=== PATIENT | male | born 1955 | race Caucasian/White ===

== ENCOUNTER 2019-09-21 20:05 | Emergency (ER) | payer OTHER, SELFPAY ==
[2019-09-21 20:18] VITALS: BP 165/95; PULSE 89; RESP 18; TEMP 36.8; O2SAT 99
--- NOTE | 2019-09-21 20:32 | ED.WOUNDLAC ---
HPI - Wound/Laceration General Chief Complaint: Wound/Laceration Stated Complaint: injury to finger Time Seen by Provider: 09/21/19 20:32 Source: patient Mode of arrival: ambulatory Limitations: no limitations History of Present Illness HPI narrative: 64-year-old man comes in today complaining of a laceration on the tip of his left index finger. Patient states that seat for his new lawn or came down and cut off the tip. He states he had a tetanus shot 2 years ago. Onset (ago): hour(s) (1) Extremity Location: Left: hand ( Index finger tip) Place: home Patient tetanus UTD: Yes Context: accidental Associated symptoms: pain Treatments prior to arrival: bandage Related Data Home Medications Medication Instructions Recorded Confirmed gabapentin 300 mg PO TID 09/21/19 09/21/19 meloxicam 15 mg PO DAILY 09/21/19 09/21/19 pantoprazole 40 mg PO QAM 09/21/19 09/21/19 Allergies Allergy/AdvReac Type Severity Reaction Status Date / Time No Known Allergies Allergy Verified 09/21/19 20:25 Review of Systems Constitutional: Constitutional: Denies chills, Denies fever(s) and Denies weakness Cardiovascular: Cardiovascular: Denies chest pain and Denies radiating jaw, neck or arm pain Respiratory: Respiratory: Denies cough and Denies dyspnea Musculoskeletal: Musculoskeletal: Reports back pain ( chronic), Denies arthralgias, Denies joint swelling and Denies muscle cramps Integumentary/Breasts: Skin/Breast: Reports as per HPI, Denies pruritus, Denies erythema and Denies rash Neurologic: Denies vertigo, Denies dizziness, Denies syncope, Denies focal weakness and Denies numbness Hematologic/Lymphatic: Hematologic/Lymphatic: Denies easy bleeding and Denies easy bruising Allergic/Immunologic: Allergic/Immunologic: Denies lip swelling, Denies throat swelling and Denies tongue swelling PMFSH Past Medical History Medical History Back pain GERD (gastroesophageal reflux disease) Surgical History Surgical History History of surgery on arm laceration of forearm and flexor tendon Social History Social History Smoking status: Current every day smoker Alcohol intake: never Substance use: never Living arrangements: with family Exam Const: General: healthy appearing and alert Orientation/consciousness: patient oriented x3 Other: mild acute distress. Resp: Effort & Inspection: normal respiratory effort, not labored and no retractions Auscultation: clear to auscultation bilaterally, no rales, no rhonchi and no wheezes Cardio: Rate: abnormal rate Rhythm: abnormal rhythm Heart sounds: no murmurs Skin: General skin exam: normal color, no jaundice and no pallor Rashes: no rashes Other: oval left index finger tip avulsion 1 cm in greatest dimension. Small amount of active bleeding. Nail and nail bed are uninvolved. Neuro: General: patient oriented x3, moves all extremities and no focal motor deficits Speech: normal speech Extrem: General: normal to inspection and no clubbing, cyanosis or edema Psych: Appearance: grossly normal and well kempt Mental Status: mental status grossly normal Affect: normal affect Attitude: cooperative Thought content: Yes Normal thought content present Course Vital Signs Vital signs: Vital Signs Temperature 36.8 C 09/21/19 20:18 Pulse Rate 89 09/21/19 20:18 Respiratory Rate 18 09/21/19 20:18 Blood Pressure 165/95 H 09/21/19 20:18 Pulse Oximetry 99 09/21/19 20:18 Temperature 36.8 C 09/21/19 20:18 Pulse Rate 89 09/21/19 20:18 Respiratory Rate 18 09/21/19 20:18 Blood Pressure 165/95 H 09/21/19 20:18 Pulse Oximetry 99 09/21/19 20:18 Procedures Laceration Laceration 1: Date: 09/21/19 Time: 20:50 Size (cm): 1 Description: irregular and contaminated
== END 2019-09-21 21:18 | disposition home or self-care (01) ==
PROVIDERS: Emergency Provider Emergency Medicine; PCP Internal Medicine
DX: S61.211A Laceration without foreign body of left index finger without damage to nail, initial encounter (principal); W45.8XXA Other foreign body or object entering through skin, initial encounter
CPT/HCPCS: 12001; 99283

== ENCOUNTER 2020-06-12 17:14 | Emergency (ER) | payer OTHER, SELFPAY ==
--- NOTE | ~2020-06-12 | CT_ITS ---
EXAMINATION: CT abdomen pelvis wo con DATE: 06/12/2020 18:07 INDICATION: Right flank pain TECHNIQUE: Computed tomography (CT) of the abdomen and pelvis was performed without intravenous contr ast. The dose-length product (DLP) was 266.26 mGy-cm. Automated exposure control and iterative recons truction technique were employed. COMPARISON: None FINDINGS: The lung bases are clear. The heart size is normal. Hypoattenuating lesions of the liver me asuring up to 2.4 cm in the left hepatic lobe likely represent cysts. The spleen, pancreas, gallbladd er, and adrenal glands are normal. There is a 3 mm stone of the right distal ureter which causes mild right hydroureteronephrosis. Cysts of the right kidney measure up to 2.5 cm. There is a 2 mm nonobst ructing stone of the left kidney lower pole. There is calcified atherosclerosis of the aorta and many of the other arteries. No pathologically enlarged abdominal or pelvic lymph nodes are identified. Th ere is no free intraperitoneal gas or evidence of bowel obstruction. There are fat-containing inguina l hernias. There are bilateral L5 pars defects with grade 1 anterolisthesis of L5 on S1. IMPRESSION: 1. 3 mm stone of the right distal ureter causing mild right hydroureteronephrosis. Consider KUB for t reatment planning purposes. Reviewed, dictated and finalized at location A. TECH IMPRESSION: 1. 3 mm stone of the right distal ureter causing mild right hydroureteronephros is. Consider KUB for treatment planning purposes.
--- NOTE | 2020-06-12 17:39 | ECG_ITS ---
Measurements Intervals [place] Rate: 88 P: 46 ID: 151 QRS: -36 QRSD: 145 T: 29 QT: 388 QTc: 470 Interpretive Statements SINUS RHYTHM LEFT AXIS DEVIATION RIGHT BUNDLE BRANCH BLOCK BASELINE ARTIFACT- I, II, III, V3 ABNORMAL ECG Electronically Signed On 06-12-2020 19:15:47 [employer] by David Alfaro D.O.
[2020-06-12] MEDS: KETOROLAC 30 MG/ML VIAL (*BKC) IV PUSH (17:45)
[2020-06-12] MEDS: SODIUM CHLORIDE 0.9% IV 1,000 ML 999 ML IV CONT (17:45)
[2020-06-12 17:58] LABS: Add Urine Microscopic? YES; Appearance Urine Clear (Clear); Basophils Absolute Auto 0.07 K/mm3 (0.00-0.10); Bilirubin Urine Negative (Negative); Blood Urine 3+ (Negative); Color Urine Yellow (Yellow); Eosinophils Absolute Auto 0.32 K/mm3 (0.02-0.50); Eosinophils Percent Auto 4.5 % (1.0-6.0); Glucose Urine UA Negative (Negative); Hematocrit 39.8 % (40.0-54.0); Hemoglobin 13.2 g/dL (14.0-18.0); Immature Granulocyte Absolute 0.03 K/mm3 (0.00-0.00); Immature Granulocyte Percent A 0.4 % (0.0-0.0); Ketones Urine Negative (Negative); Leukocyte Esterase Ur Negative LEU/UL (Negative); Lymphocytes Absolute Auto 2.11 K/mm3 (1.10-4.50); Lymphocytes Percent Auto 29.9 % (18.0-42.0); Mean Corpuscular HGB Conc 33.2 g/dL (32.0-36.0); Mean Corpuscular Hemoglobin 30.2 pg (27.0-31.0); Mean Corpuscular Volume 91.1 fL (78.0-102.0); Mean Platelet Volume 9.5 fl (8.7-11.0); Monocytes Absolute Auto 0.71 K/mm3 (0.10-0.90); Monocytes Percent Auto 10.1 % (2.0-11.0); Neutrophils Absolute Auto 3.8 K/mm3 (1.7-7.2); Neutrophils Percent Auto 54.1 % (50.0-70.0); Nitrate Urine Negative (Negative); Platelet Count Result 222 K/mm3 (150-420); Protein Urine Negative (Negative); Red Blood Count 4.37 M/mm3 (4.70-6.10); Red Cell Distribution Width 12.6 % (11.6-14.4); Specific Grav Ur >= 1.030 (1.010-1.020); Urobilinogen Urine 0.2 mg/dL (0.2-1.0); White Blood Count 7.1 K/mm3 (4.8-10.8); pH Urine 5.5 (5.0-8.0)
[2020-06-12 18:03] VITALS: BP 156/105; PULSE 75; RESP 20; TEMP 36.8; O2SAT 99
[2020-06-12 18:04] LABS: RBC Urine 21-50 /hpf (0-2); Squamous Epithelial Cell Urine Rare /hpf (Few); WBC Urine 0-3 /hpf (0-3)
[2020-06-12 18:05] LABS: Bacteria Urine Trace /hpf
[2020-06-12 18:14] LABS: Alanine Aminotransferase 38 U/L (16-63); Alkaline Phosphatase 64 U/L (46-116); Anion Gap 7 mmol/L (8-16); Aspartate Amino Transferase 34 U/L (15-37); Bilirubin,Total 0.4 mg/dL (0.00-1.00); Blood Urea Nitrogen 27 mg/dL (7-18); Calcium 8.9 mg/dL (8.5-10.1); Carbon Dioxide 26 mmol/L (21-32); Chloride 105 mmol/L (98-108); Estimated CRCL calculation 39 ml/min; Estimated Glomerular Filt Rate 39; Glucose 99 mg/dL (70-99); Lipase 136 U/L (73-393); Osmolality Calculated 291 mOsm/kg (285-295); Potassium 4.1 mmol/L (3.5-5.1); Sodium 138 mmol/L (136-145); Troponin I 4.6 ng/L (0.00-60.4)
[2020-06-12 18:17] LABS: Lactic Acid Reflex 1.3 mmol/L (0.4-2.0)
--- NOTE | 2020-06-12 18:38 | ED.MALEGU ---
HPI - Male Genitourinary General Chief complaint: Urogenital-Male Stated complaint: side pain Source: patient and family Mode of arrival: ambulatory Limitations: no limitations History of Present Illness HPI Narrative: this is a 65-year-old gentleman that presents with right flank pain that radiates into his right groin started earlier today rates his pain about 8/10 is intermittent with some no dysuria no hematuria no nausea vomiting no chest pain no shortness of breath. Patient states that he does have a remote history of kidney stones in the past, currently no fever chills. Onset (ago): hour(s) Duration: intermittent Location: right flank Severity: moderate Severity scale (1-10): 8 Quality: aching and dull Relieving factors: none Exacerbating factors: none Related Data Home Medications Medication Instructions Recorded Confirmed meloxicam [Mobic] 15 mg PO DAILY 09/21/19 06/12/20 pantoprazole [Protonix] 40 mg PO QAM 09/21/19 06/12/20 Allergies Allergy/AdvReac Type Severity Reaction Status Date / Time No Known Allergies Allergy Verified 06/12/20 18:08 Review of Systems Review of Systems: All systems reviewed & are unremarkable except as noted in HPI and below PMFSH Past Medical History Medical History Back pain GERD (gastroesophageal reflux disease) Surgical History Surgical History History of surgery on arm laceration of forearm and flexor tendon Social History Social History Smoking status: Current every day smoker Alcohol intake: never Substance use: never Gender identity (if verbalized by the patient): Male Exam Const: General: cooperative, healthy appearing and no acute distress HENMT: Head: normal to inspection General nose exam: Normal external nose present Face and sinus: normal facial exam Mouth: Yes Normal oral and palatal mucosa present Eyes: General: appearance normal, both eyes and all related structures Sclera: sclerae normal Cornea: corneas normal Chest: Chest palpation & inspection: normal inspection of the chest and normal palpation of entire chest wall Resp: Effort & Inspection: normal respiratory effort and able to speak in complete sentences Auscultation: clear to auscultation bilaterally Cardio: Jugular venous distension: no JVD Palpation: normal PMI Rate: regular rate Rhythm: regular rhythm Heart sounds: S1 normal heart sound present Bruits: Abdominal aortic bruit present Peripheral pulses: Peripheral pulses 2+ throughout GI: Inspection: normal to inspection : General: Yes CVA tenderness ( Right flank tenderness radiating into his right groin) Back/Spine/Pelvis: Back: CVA tenderness Skin: General skin exam: normal color Extrem: General: normal to inspection, full ROM and capillary refill normal Psych: Appearance: grossly normal and well kempt Mental Status: mental status grossly normal Course Course Emergency Course: patient receive Toradol IV and pain is some marginally reduced, received IV fluids and reviewed the CT scan and blood work with patient and advise that he has a small urinary stone in the distal ureter approximately 3mm. Vital Signs Vital signs: Vital Signs Temperature 36.8 C 06/12/20 18:03 Pulse Rate 75 06/12/20 18:03 Respiratory Rate 20 06/12/20 18:03 Blood Pressure 156/105 H 06/12/20 18:03 Pulse Oximetry 99 06/12/20 18:03 Temperature 36.8 C 06/12/20 18:03 Pulse Rate 75 06/12/20 18:03 Respiratory Rate 20 06/12/20 18:03 Blood Pressure 156/105 H 06/12/20 18:03 Pulse Oximetry 99 06/12/20 18:03 MDM - Male Genitourinary Lab Data Result diagrams: 06/12/20 17:50 06/12/20 17:50 Labs: Lab Results 06/12/20 06/12/20 06/12/20 Range/Units 17:50 17:50 17:50 WBC 7.1 (4.8-10.8) K/mm3 RBC 4.37
[2020-06-12] MEDS: TAMSULOSIN HCL 0.4 MG CAPSULE PO (18:45)
[2020-06-12] MEDS: amLODIPine BESYLATE 5 MG TABLET PO (18:45)
[2020-06-12 18:46] VITALS: BP 128/98; PULSE 81; RESP 20; O2SAT 99
== END 2020-06-12 18:51 | disposition home or self-care (01) ==
PROVIDERS: Emergency Provider Emergency Medicine; PCP Internal Medicine
DX: N20.1 Calculus of ureter (principal)
CPT/HCPCS: 36415; 74176; 80053; 81001; 83605; 83690; 84484; 85025; 93005; 96361; 96374; 99283; 99284; A9270; J1885; J7030

== ENCOUNTER 2020-09-30 06:53 | Outpatient (CLI) | payer OTHER, SELFPAY ==
[2020-09-30 07:07] LABS: Basophils Absolute Auto 0.06 K/mm3 (0.00-0.10); Basophils Percent Auto 1.1 % (0.0-1.0); Eosinophils Absolute Auto 0.32 K/mm3 (0.02-0.50); Eosinophils Percent Auto 5.9 % (1.0-6.0); Hemoglobin 14.1 g/dL (14.0-18.0); Immature Granulocyte Absolute 0.02 K/mm3 (0.00-0.00); Immature Granulocyte Percent A 0.4 % (0.0-0.0); Lymphocytes Absolute Auto 1.45 K/mm3 (1.10-4.50); Lymphocytes Percent Auto 26.7 % (18.0-42.0); Mean Corpuscular HGB Conc 33.6 g/dL (32.0-36.0); Mean Corpuscular Hemoglobin 30.9 pg (27.0-31.0); Mean Corpuscular Volume 92.1 fL (78.0-102.0); Mean Platelet Volume 9.1 fl (8.7-11.0); Monocytes Absolute Auto 0.55 K/mm3 (0.10-0.90); Monocytes Percent Auto 10.1 % (2.0-11.0); Neutrophils Percent Auto 55.8 % (50.0-70.0); Platelet Count Result 226 K/mm3 (150-420); Red Blood Count 4.56 M/mm3 (4.70-6.10); Red Cell Distribution Width 12.5 % (11.6-14.4); White Blood Count 5.4 K/mm3 (4.8-10.8)
[2020-09-30 07:08] LABS: Add Urine Microscopic? NO; Appearance Urine Clear (Clear); Bilirubin Urine Negative (Negative); Blood Urine Negative (Negative); Color Urine Yellow (Yellow); Glucose Urine UA Negative (Negative); Ketones Urine Negative (Negative); Leukocyte Esterase Ur Negative LEU/UL (Negative); Nitrate Urine Negative (Negative); Protein Urine Negative (Negative); Specific Grav Ur >= 1.030 (1.010-1.020); Urobilinogen Urine 0.2 mg/dL (0.2-1.0)
[2020-09-30 08:26] LABS: Alanine Aminotransferase 41 U/L (16-63); Albumin Level 3.8 g/dL (3.4-5.0); Alkaline Phosphatase 67 U/L (46-116); Anion Gap 9 mmol/L (8-16); Aspartate Amino Transferase 22 U/L (15-37); Bilirubin,Total 0.4 mg/dL (0.00-1.00); Blood Urea Nitrogen 20 mg/dL (7-18); Calcium 8.6 mg/dL (8.5-10.1); Carbon Dioxide 26 mmol/L (21-32); Chloride 106 mmol/L (98-108); Estimated Glomerular Filt Rate 53; Glucose 95 mg/dL (70-99); Osmolality Calculated 294 mOsm/kg (285-295); Potassium 4.7 mmol/L (3.5-5.1); Sodium 141 mmol/L (136-145); Total Protein 6.6 g/dL (6.4-8.2)
== END 2020-09-30 06:54 | disposition home or self-care (01) ==
LOC: CHSLAB 06:55
PROVIDERS: PCP Internal Medicine; Visit Provider Internal Medicine
DX: D64.9 Anemia, unspecified (principal); M25.511 Pain in right shoulder; M25.561 Pain in right knee; N40.0 Benign prostatic hyperplasia without lower urinary tract symptoms
CPT/HCPCS: 36415; 80053; 81003; 85025

== ENCOUNTER 2020-10-30 07:42 | Outpatient (RCR) | payer OTHER, SELFPAY ==
--- NOTE | 2020-10-30 08:05 | PTOPEVAL ---
Thank you for referring Zohaib Rothman to [facility].? The patient is scheduled to be seen for therapy? ____x/week for ___ weeks. Please review, sign, date and return this plan of care SORAYA. I agree with and certify that the following plan of care is medically necessary. Referring Physician Date Admitting Provider: Attending Provider: Primo Shaffer MD Referring Provider: *PT Outpatient Evaluation Start: 10/30/20 07:08 Freq: Status: Active Protocol: Document 10/30/20 07:10 [facility] (Rec: 10/30/20 08:04 [facility] [id number]) Therapy Assessment Status Assessment Status Assessment Status Evaluation Evaluation Information Problem Diagnosis chronic low back pain Onset 10/07/20 Additional Evaluation Detail oswestry = 46% functionally declined Subjective Information patient reports he has been Query Text:As Reported By Patient/ having pain in the lower back Family for decades. he reports he has been told his back was broken at some time, but he does not remember this ocurring due to an accident. he reports he has a PARS defect bilaterally at L5. he reports he has increased pain with bending forward and staying in this position, lifting heavy objects, twisting/turning. he reports he has not been working for nearly a month. 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 he reports he does have pain down the bilateral LE's at times, worse and most frequent on the R side. 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 Pain Assessment Timing of Pain Assessment Timing of Pain Assessment Assessment Pain Scale Pain Scale Used Numeric (1 - 10) Self Report Pain Assessment Lower Back Reported Pain Level 2 Moe
--- NOTE | 2020-12-15 16:08 | PCPTNOTE ---
patient has not been to therapy in over a month. as of this date, he will be dc'd from skilled PT services and all progress towards goals will be taken from his most recent evaluation/note. GEENA
== END 2020-11-06 09:03 | disposition home or self-care (01) ==
LOC: CHSPT 07:42
PROVIDERS: PCP Internal Medicine; Visit Provider Internal Medicine
DX: M54.5 Low back pain (principal); M43.10 Spondylolisthesis, site unspecified
CPT/HCPCS: 97014; 97110; 97140; 97162; G0283

== ENCOUNTER 2020-12-25 01:55 | Emergency (ER) | payer OTHER, SELFPAY ==
--- NOTE | ~2020-12-25 | CT_ITS ---
EXAMINATION: CT abdomen pelvis wo con EXAM DATE: 12/25/2020 02:51 INDICATION: Kidney stone, left flank pain. Symptoms 3 hours. TECHNIQUE: Spiral CT of the abdomen and pelvis was performed without contrast. Axial, coronal and sag ittal images were reviewed. The dose-length product (DLP) for this examination was 197.88 mGy-cm. T he exposure was tailored according to patient size (auto mA exposure control), and iterative reconstr uction (ASIR) was used as additional dose reduction technique. Comparison is made to prior examinatio n from 06/12/2020 there is left UVJ punctate 2 mm stone, mild obstructive nephropathy. There is punctat e right superior calyceal stone.. FINDINGS: There are 3 right renal lesions, largest off the posterior cortex inferiorly measuring 2.5 cm, could be proteinaceous cyst but cystic renal cell cancer is also possible. This measured about 2. 1 cm in June. Small left inguinal fat-containing hernia. The prostate is unremarkable. The bladder is collapsed at time of imaging limiting evaluation. Some scattered liver cysts largest in the left liver lobe measuring 2.1 cm. Gallbladder is unremarkable. No biliary obstruction. There is no retroperitoneal or pelvic lymphadenopathy. There is mild sca ttered arteriosclerotic disease. The appendix is not positively visualized. There is no pericecal inflammatory change to suggest appe ndicitis. The stomach and small bowel are unremarkable. There is expected amount of colonic stool. No free intraperitoneal gas. The heart is normal in size. There are no pericardial or pleural e ffusions. The lung bases are unremarkable. Chronic bilateral L5 spondylolysis, grade 1 anterolisthe sis L5 on S1 and moderate to severe loss of this disc height. IMPRESSION: 1. Indeterminate exophytic right renal lesion, cystic renal cell cancer versus hemorrhagic cyst. . Recommend kidney ultrasound, CT with contrast or MRI without and with contrast for further evaluatio n. 2. Punctate left UVJ stone. Mild obstructive nephropathy. I discussed indeterminate right renal lesion, recommendation with nurse Vega in the emergency dep artment at [facility] at 12/25/2020 09:17 CDT. Reviewed, dictated and finalized at location B. IMPRESSION: 1. Indeterminate exophytic right renal lesion, cystic renal cell cancer versus hemorrhagic cyst. . Recommend kidney ultrasound, CT with contrast or MRI wit hout and with contrast for further evaluation. 2. Punctate left UVJ stone. Mild obstructive nephropathy. I discussed indeterminate right renal lesion, recommendation with nurse Zaida jackson in the emergency department at [facility] at 12/25/2020 09:17 CDT.
[2020-12-25 02:12] VITALS: BP 176/105; PULSE 91; RESP 20; TEMP 36.1; O2SAT 99
--- NOTE | 2020-12-25 02:16 | ED.ABDPAIN ---
HPI - Abdominal Pain General Chief Complaint: Abdominal Pain Stated Complaint: Kidney stone Time Seen by Provider: 12/25/20 01:57 Source: patient and RN notes reviewed Mode of arrival: ambulatory Limitations: no limitations History of Present Illness MD elicited complaint: flank pain Pertinent past history: kidney stones Onset (ago): hour(s) (6) Pain Consistency: colicky Location: L flank and groin Severity: moderate Pain scale (0-10): 7 Quality: cramping and aching Radiation: L flank Exacerbating factors: nothing Relieving factors: nothing Associated symptoms: nausea Treatments prior to arrival: prescription analgesics Related Data Home Medications Medication Instructions Recorded Confirmed meloxicam [Mobic] 15 mg PO DAILY 09/21/19 12/25/20 pantoprazole [Protonix] 40 mg PO QAM 09/21/19 12/25/20 Allergies Allergy/AdvReac Type Severity Reaction Status Date / Time No Known Allergies Allergy Verified 06/12/20 18:08 Review of Systems Review of Systems: All systems reviewed & are unremarkable except as noted in HPI and below Gastrointestinal: Comments: left flank pain PMFSH Past Medical History Medical History Back pain GERD (gastroesophageal reflux disease) Renal and ureteric calculus Surgical History Surgical History History of surgery on arm laceration of forearm and flexor tendon Social History Social History Smoking status: Current every day smoker Alcohol intake: never Substance use: never Gender identity (if verbalized by the patient): Male Exam Const: General: no acute distress Nutritional Appearance: well nourished Orientation/consciousness: patient oriented x3 HENMT: Head: normal to inspection Ears: external ears normal and TM's normal bilaterally General nose exam: Normal external nose present and Normal nares present Face and sinus: normal facial exam Mouth: Yes moist mucous membranes Eyes: Conjunctivae: conjunctivae normal Pupils: Equal, round and reactive pupils present EOM: EOMs intact bilaterally Neck: Neck: normal visual inspection and no lymphadenopathy Chest: Chest palpation & inspection: normal inspection of the chest Cardio: Rate: regular rate Rhythm: regular rhythm GI: GI Palp: Yes Soft to palpation and Yes Tenderness to palpation present (GI) (left flank) : General: Yes CVA tenderness Back/Spine/Pelvis: Back: CVA tenderness Skin: General skin exam: normal color Rashes: no rashes Neuro: General: patient oriented x3, moves all extremities, no meningeal signs, no focal motor deficits and CN's II-XI intact bilaterally Extrem: General: normal to inspection and no pedal edema Psych: Appearance: grossly normal and well kempt Mental Status: mental status grossly normal Affect: normal affect Thought content: Yes Normal thought content present Course Course Emergency Course: Pt was stable in the ED with less pain. Reevaluation(s) Reevaluation #1: pt responded to analgesia and was less painful in the ED. Date: 12/25/20 Time: 02:55 Vital Signs Vital signs: Vital Signs Temperature 36.1 C L 12/25/20 02:12 Pulse Rate 91 12/25/20 02:12 Respiratory Rate 20 12/25/20 02:12 Blood Pressure 176/105 H 12/25/20 02:12 Pulse Oximetry 99 12/25/20 02:12 Temperature 36.1 C L 12/25/20 02:12 Pulse Rate 91 12/25/20 02:12 Respiratory Rate 20 12/25/20 02:12 Blood Pressure 176/105 H 12/25/20 02:12 Pulse Oximetry 99 12/25/20 02:12 MDM - Abdominal Pain Differential Diagnosis Differential diagnosis: Likely abdominal pain, acute appendicitis and calculus of kidney Medical Records Attestation: I reviewed the patient's medical records. Lab Data Attestation: I reviewed the patient's lab results. Imaging Data Radiologist's impression: see the report. Critical Care T
[2020-12-25] MEDS: MORPHINE SULFATE (*CRX) 2 MG/ML INJ IV PUSH ×2 (02:22→03:00)
[2020-12-25] MEDS: ONDANSETRON INJ 4 MG/2 ML VIAL IV PUSH (02:22)
[2020-12-25] MEDS: SODIUM CHLORIDE 0.9% IV 500 ML 999 ML IV CONT (02:23)
[2020-12-25 02:38] LABS: Basophils Absolute Auto 0.08 K/mm3 (0.00-0.10); Basophils Percent Auto 1.4 % (0.0-1.0); Eosinophils Absolute Auto 0.26 K/mm3 (0.02-0.50); Eosinophils Percent Auto 4.7 % (1.0-6.0); Hematocrit 40.7 % (40.0-54.0); Hemoglobin 13.7 g/dL (14.0-18.0); Immature Granulocyte Absolute 0.03 K/mm3 (0.00-0.00); Immature Granulocyte Percent A 0.5 % (0.0-0.0); Lymphocytes Absolute Auto 1.32 K/mm3 (1.10-4.50); Lymphocytes Percent Auto 23.7 % (18.0-42.0); Mean Corpuscular HGB Conc 33.7 g/dL (32.0-36.0); Mean Corpuscular Hemoglobin 31.1 pg (27.0-31.0); Mean Corpuscular Volume 92.5 fL (78.0-102.0); Mean Platelet Volume 9.4 fl (8.7-11.0); Monocytes Absolute Auto 0.64 K/mm3 (0.10-0.90); Monocytes Percent Auto 11.5 % (2.0-11.0); Neutrophils Absolute Auto 3.2 K/mm3 (1.7-7.2); Neutrophils Percent Auto 58.2 % (50.0-70.0); Platelet Count Result 212 K/mm3 (150-420); Red Cell Distribution Width 12.7 % (11.6-14.4); White Blood Count 5.6 K/mm3 (4.8-10.8)
[2020-12-25 02:41] LABS: Add Urine Microscopic? YES; Appearance Urine Clear (Clear); Bilirubin Urine Negative (Negative); Blood Urine 1+ (Negative); Color Urine Light Yellow (Yellow); Glucose Urine UA Negative (Negative); Ketones Urine Negative (Negative); Leukocyte Esterase Ur Negative (Negative); Nitrate Urine Negative (Negative); Protein Urine Negative (Negative); Specific Grav Ur >= 1.030 (1.010-1.020)
[2020-12-25 02:46] LABS: WBC Urine 0-3 /hpf (0-3)
[2020-12-25 02:47] LABS: Bacteria Urine Trace /hpf; Mucus Urine Rare /lpf; Squamous Epithelial Cell Urine None seen /hpf (Few)
[2020-12-25 02:53] LABS: Alanine Aminotransferase 46 U/L (16-63); Albumin Level 3.9 g/dL (3.4-5.0); Alkaline Phosphatase 66 U/L (46-116); Anion Gap 9 mmol/L (8-16); Aspartate Amino Transferase 18 U/L (15-37); Bilirubin,Total 0.3 mg/dL (0.00-1.00); Blood Urea Nitrogen 22 mg/dL (7-18); Calcium 8.5 mg/dL (8.5-10.1); Carbon Dioxide 27 mmol/L (21-32); Chloride 106 mmol/L (98-108); Estimated CRCL calculation 41 ml/min; Estimated Glomerular Filt Rate 40; Glucose 106 mg/dL (70-99); Osmolality Calculated 297 mOsm/kg (285-295); Sodium 142 mmol/L (136-145); Total Protein 6.8 g/dL (6.4-8.2)
[2020-12-25 03:11] VITALS: BP 142/93; PULSE 80; RESP 18; O2SAT 99
[2020-12-25 03:46] VITALS: BP 140/88; PULSE 87; RESP 18; TEMP 36.2; O2SAT 98
== END 2020-12-25 03:55 | disposition home or self-care (01) ==
PROVIDERS: Emergency Provider Emergency Medicine; PCP Internal Medicine
DX: N20.2 Calculus of kidney with calculus of ureter (principal)
CPT/HCPCS: 36415; 74176; 80053; 81001; 85025; 96374; 96375; 96376; 99283; 99284; J2270; J2405; J7040

== ENCOUNTER 2020-12-27 07:08 | Emergency (ER) | payer OTHER, SELFPAY ==
--- NOTE | ~2020-12-27 | CT_ITS ---
EXAMINATION: CT abdomen pelvis w con INDICATION: Left flank pain TECHNIQUE: Computed tomographic images of the abdomen and pelvis were obtained after the administrati on of 100 cc of Omnipaque 350 intravenous contrast. The dose-length product (DLP) was 537.64 mGy-cm. Automated exposure control and iterative reconstruction technique were employed. COMPARISON: 12/25/2020 FINDINGS: The lung bases are clear. The heart size is normal. Cysts of the liver measure up to 2.4 cm . The spleen, pancreas, gallbladder, and adrenal glands are normal. A 3 mm stone is again seen at the left ureterovesicular junction which causes mild left hydroureteronephrosis. The 2.5 cm right kidney lesion described on the recent comparison measures fluid attenuation and is nonenhancing, consistent with a cyst. Smaller cysts are also noted in the right kidney. No pathologically enlarged abdominal or pelvic lymph nodes are identified. There is no free intraperitoneal gas or evidence of bowel obstr uction. There is calcified atherosclerosis of the aorta and many of the other arteries. There are fabby ateral L5 pars defects with grade 1 anterolisthesis of L5 on S1. There is a tiny fat-containing umbil ical hernia. IMPRESSION: 1. 3 mm stone at the left ureterovesicular junction causing mild left hydroureteronephrosis. 2. Right kidney cysts. Reviewed, dictated and finalized at location A. IMPRESSION: 1. 3 mm stone at the left ureterovesicular junction causing mild left hydrouret eronephrosis. 2. Right kidney cysts.
[2020-12-27 07:20] VITALS: BP 160/91; PULSE 82; RESP 20; TEMP 36.6; O2SAT 99
--- NOTE | 2020-12-27 07:26 | ECG_ITS ---
Measurements Intervals [place] Rate: 79 P: 22 SD: 149 QRS: -41 QRSD: 145 T: 8 QT: 409 QTc: 470 Interpretive Statements SINUS RHYTHM LEFT AXIS DEVIATION RIGHT BUNDLE BRANCH BLOCK ABNORMAL ECG Electronically Signed On 12-28-2020 19:26:26 CDT by David Alfaro D.O.
[2020-12-27] MEDS: KETOROLAC 30 MG/ML VIAL (*BKC) IV PUSH (07:35)
[2020-12-27] MEDS: SODIUM CHLORIDE 0.9% IV 1,000 ML 999 ML IV CONT (07:35)
[2020-12-27 07:48] LABS: Basophils Absolute Auto 0.06 K/mm3 (0.00-0.10); Basophils Percent Auto 1.1 % (0.0-1.0); Eosinophils Absolute Auto 0.26 K/mm3 (0.02-0.50); Eosinophils Percent Auto 4.6 % (1.0-6.0); Hematocrit 43.6 % (40.0-54.0); Hemoglobin 14.2 g/dL (14.0-18.0); Immature Granulocyte Absolute 0.02 K/mm3 (0.00-0.00); Immature Granulocyte Percent A 0.4 % (0.0-0.0); Lymphocytes Percent Auto 24.5 % (18.0-42.0); Mean Corpuscular HGB Conc 32.6 g/dL (32.0-36.0); Mean Corpuscular Hemoglobin 30.4 pg (27.0-31.0); Mean Corpuscular Volume 93.4 fL (78.0-102.0); Mean Platelet Volume 9.4 fl (8.7-11.0); Monocytes Absolute Auto 0.65 K/mm3 (0.10-0.90); Monocytes Percent Auto 11.4 % (2.0-11.0); Neutrophils Absolute Auto 3.3 K/mm3 (1.7-7.2); Platelet Count Result 214 K/mm3 (150-420); Red Blood Count 4.67 M/mm3 (4.70-6.10); Red Cell Distribution Width 12.8 % (11.6-14.4); White Blood Count 5.7 K/mm3 (4.8-10.8)
[2020-12-27 08:03] LABS: Partial Thromboplastin Time 26.3 SEC (23.90-30.70); Prothrombin Time 10.3 Seconds (9.50-12.10)
[2020-12-27 08:07] LABS: Alanine Aminotransferase 47 U/L (16-63); Albumin Level 4.1 g/dL (3.4-5.0); Alkaline Phosphatase 68 U/L (46-116); Anion Gap 10 mmol/L (8-16); Aspartate Amino Transferase 20 U/L (15-37); Bilirubin,Total 0.4 mg/dL (0.00-1.00); Blood Urea Nitrogen 24 mg/dL (7-18); Carbon Dioxide 26 mmol/L (21-32); Chloride 107 mmol/L (98-108); Estimated CRCL calculation 45 ml/min; Estimated Glomerular Filt Rate 46; Glucose 118 mg/dL (70-99); Lipase 136 U/L (73-393); Osmolality Calculated 301 mOsm/kg (285-295); Potassium 4.4 mmol/L (3.5-5.1); Sodium 143 mmol/L (136-145); Total Protein 7.2 g/dL (6.4-8.2)
[2020-12-27 08:10] LABS: Lactic Acid Reflex 2.1 mmol/L (0.4-2.0)
[2020-12-27 08:24] VITALS: BP 131/80; PULSE 78; RESP 20; O2SAT 99
[2020-12-27 09:17] LABS: Appearance Urine Clear (Clear); Bilirubin Urine Negative (Negative); Color Urine Light Yellow (Yellow); Glucose Urine UA Negative (Negative); Ketones Urine Negative (Negative); Leukocyte Esterase Ur Negative (Negative); Nitrate Urine Negative (Negative); Protein Urine Negative (Negative); Specific Grav Ur 1.015 (1.010-1.020); Urobilinogen Urine 0.2 mg/dL (0.2-1.0)
--- NOTE | 2020-12-27 09:17 | ED.BACK ---
HPI - Back Pain/Injury General Chief Complaint: Back Pain/Injury Stated Complaint: L lower back pain Source: patient and family Mode of arrival: ambulatory History of Present Illness HPI Narrative: this is a 65-year-old gentleman that presents with left flank pain was seen approximately a week or 2 ago with similar symptoms and was given pain medication and Flomax. The patient presents with continued left flank pain that started up again overnight that radiated into his left groin area. Patient has no nausea vomiting no fever chills no dysuria no hematuria. Also was told that he had a lesion on his right kidney on CT scan there was previously done 2 weeks ago. MD elicited complaint: back pain Pertinent past history: prior back pain Onset (ago): day(s) Timing: intermittent Severity: severe Pain scale (0-10): 8 Quality: sharp Location: left flank Radiation: abdomen Exacerbating factors: none Relieving factors: none Related Data Home Medications Medication Instructions Recorded Confirmed meloxicam [Mobic] 15 mg PO DAILY 09/21/19 12/27/20 pantoprazole [Protonix] 40 mg PO QAM 09/21/19 12/27/20 tamsulosin 0.4 mg PO DAILY 12/27/20 12/27/20 Allergies Allergy/AdvReac Type Severity Reaction Status Date / Time No Known Allergies Allergy Verified 06/12/20 18:08 Review of Systems Review of Systems: All systems reviewed & are unremarkable except as noted in HPI and below PMFSH Past Medical History Medical History Back pain GERD (gastroesophageal reflux disease) Renal and ureteric calculus Surgical History Surgical History History of surgery on arm laceration of forearm and flexor tendon Social History Social History Smoking status: Current every day smoker Alcohol intake: never Substance use: never Gender identity (if verbalized by the patient): Male Exam Const: General: no acute distress and alert Orientation/consciousness: patient oriented x3 HENMT: Head: normal to inspection Eyes: Conjunctivae: conjunctivae normal Pupils: Equal, round and reactive pupils present EOM: EOMs intact bilaterally Neck: Neck: normal visual inspection, no lymphadenopathy and no meningeal signs Chest: Chest palpation & inspection: normal inspection of the chest Resp: Effort & Inspection: normal respiratory effort Auscultation: clear to auscultation bilaterally Cardio: Rate: regular rate Rhythm: regular rhythm GI: Other: Left flank pain radiating into his left groin area : General: Yes CVA tenderness Skin: General skin exam: normal color Rashes: no rashes Neuro: General: patient oriented x3, moves all extremities and no meningeal signs Psych: Mental Status: mental status grossly normal Affect: normal affect Attitude: cooperative Course Course Emergency Course: labs and CT scan results were reviewed with patient and family this CT scan was done with IV contrast and the right kidney appears to have cysts, the left UVJ shows a 3mm stone and the patient received IV fluids Toradol and labs reviewed with pain family and patient. Vital Signs Vital signs: Vital Signs Temperature 36.6 C 12/27/20 07:20 Pulse Rate 82 12/27/20 07:20 Respiratory Rate 20 12/27/20 07:20 Blood Pressure 160/91 H 12/27/20 07:20 Pulse Oximetry 99 12/27/20 07:20 Temperature 36.6 C 12/27/20 07:20 Pulse Rate 78 12/27/20 08:24 Respiratory Rate 20 12/27/20 08:24 Blood Pressure 131/80 12/27/20 08:24 Pulse Oximetry 99 12/27/20 08:24 MDM - Back Pain/Injury Lab Data Result diagrams: 12/27/20 07:42 12/27/20 07:42 Labs: Lab Results 12/27/20 12/27/20 12/27/20 Range/Units 07:42 07:42 07:42 WBC 5.7 (4.8-10.8) K/mm3 RBC 4.67 L (4.70-6.10) M/mm3 Hgb 14.2 (14.0-18.0) g/dL Hct 43.6 (4
[2020-12-27 09:21] VITALS: BP 134/89; PULSE 74; RESP 18; TEMP 36.3; O2SAT 99
[2020-12-27 09:21] LABS: Add Urine Microscopic? YES; Bacteria Urine None seen /hpf; Blood Urine Trace-Intact (Negative); RBC Urine 0-2 /hpf (0-2); WBC Urine None seen /hpf (0-3)
[2020-12-27 10:45] LABS: Reflex Lactic Acid Yes or No Add Lactic
== END 2020-12-27 09:27 | disposition home or self-care (01) ==
PROVIDERS: Emergency Provider Emergency Medicine; PCP Internal Medicine
DX: N20.1 Calculus of ureter (principal)
CPT/HCPCS: 36415; 74177; 80053; 81001; 83605; 83690; 84484; 85025; 85610; 85730; 93005; 96361; 96374; 99283; 99284; J1885; J7030; Q9967

== ENCOUNTER 2020-12-31 12:58 | Outpatient (CLI) | payer OTHER, SELFPAY | END 2020-12-31 12:59 | disposition home or self-care (01) | LOC: CHSLAB 13:00 | PROVIDERS: PCP Internal Medicine; Visit Provider Internal Medicine | DX: N20.0 Calculus of kidney (principal) | CPT/HCPCS: 82365; 88300 ==

== ENCOUNTER 2021-01-08 08:41 | Outpatient (CLI) | payer OTHER, SELFPAY ==
[2021-01-08 09:41] LABS: Alanine Aminotransferase 44 U/L (16-63); Alkaline Phosphatase 65 U/L (46-116); Anion Gap 10 mmol/L (8-16); Bilirubin,Total 0.4 mg/dL (0.00-1.00); Blood Urea Nitrogen 23 mg/dL (7-18); Calcium 8.7 mg/dL (8.5-10.1); Carbon Dioxide 26 mmol/L (21-32); Chloride 106 mmol/L (98-108); Estimated Glomerular Filt Rate 49; Glucose 92 mg/dL (70-99); Osmolality Calculated 297 mOsm/kg (285-295); Potassium 4.3 mmol/L (3.5-5.1); Sodium 142 mmol/L (136-145); Total Protein 6.6 g/dL (6.4-8.2)
[2021-01-08 10:32] LABS: Aspartate Amino Transferase 33 U/L (15-37)
== END 2021-01-08 08:42 | disposition home or self-care (01) ==
LOC: CHSLAB 08:43
PROVIDERS: PCP Internal Medicine; Visit Provider Internal Medicine
DX: Z00.00 Encounter for general adult medical examination without abnormal findings (principal); R79.89 Other specified abnormal findings of blood chemistry; Z12.5 Encounter for screening for malignant neoplasm of prostate
CPT/HCPCS: 36415; 80053; 84153; G0103

== ENCOUNTER 2021-07-10 08:30 | Outpatient (CLI) | payer OTHER, SELFPAY ==
--- NOTE | ~2021-07-10 | XR_ITS ---
XR foot RT min 3V DATE: 07/10/2021 08:48 INDICATION: Mid foot pain, from arch to heel TECHNIQUE: 4 views COMPARISON: 10/23/2014 right foot FINDINGS: There is distal Achilles tendon calcification. No fracture or dislocation, periosteal reaction or bone destruction. Joint spaces are preserved. No e rosive changes are noted. IMPRESSION: Distal Achilles tendon calcification Reviewed, dictated and finalized at location A.
--- NOTE | ~2021-07-10 | XR_ITS ---
XR ankle RT min 3V DATE: 07/10/2021 08:48 INDICATION: Right ankle and foot pain TECHNIQUE: 4 views COMPARISON: June 03, 2016 right ankle FINDINGS: Distal Achilles tendon calcification. No fracture or dislocation of the ankle or disruption of the ankle mortise. No periosteal reaction or bone destruction. IMPRESSION: Distal Achilles tendon calcification Reviewed, dictated and finalized at location A.
== END 2021-07-10 08:31 | disposition home or self-care (01) ==
LOC: CHSIMG 08:31
PROVIDERS: PCP Internal Medicine; Visit Provider Internal Medicine
DX: M79.671 Pain in right foot (principal)
CPT/HCPCS: 73610; 73630

== ENCOUNTER 2022-03-08 18:49 | Emergency (ER) | payer OTHER, SELFPAY ==
--- NOTE | ~2022-03-08 | CT_ITS ---
EXAMINATION: CT diagnostic chest wo con DATE: 03/08/2022 20:18 INDICATION: pleuritic chest pain TECHNIQUE: Computed tomography (CT) of the chest was performed with 100 mL Omnipaque-350 intravenous contrast. Automated exposure control and iterative reconstruction technique were employed. The dose-l ength product was 225.83 mGy-cm. COMPARISON: None. FINDINGS: CHEST: Thoracic aorta: No significant dilation or calcification. Lung parenchyma and airways: Minimal lingular and right middle lobe scarring. Bilateral lower lobe an d right middle lobe calcified granulomas.. Thoracic inlet, axillae and chest wall: No thyroid or soft tissue mass. No axillary lymphadenopathy. Mediastinum: No mass or lymphadenopathy. Calcified hilar lymph nodes. Heart and pericardium: Normal heart size. No pericardial effusion. Coronary artery calcifications: Mild. Pleura: No effusion or mass. Upper abdomen: Hepatic steatosis. Multiple simple hepatic cysts. Thoracic bones: No acute osseous finding in the chest. IMPRESSION: No acute thoracic process detected. Reviewed, dictated and finalized at location K. ITY ASSURANCE COORDINATOR
[2022-03-08 18:55] VITALS: BP 160/93; PULSE 118; RESP 24; TEMP 37.7; O2SAT 100
[2022-03-08 19:00] VITALS: PULSE 117
--- NOTE | 2022-03-08 19:14 | ECG_ITS ---
Measurements Intervals [place] Rate: 112 P: 29 W[place]: 128 QRS: -56 QRSD: 137 T: 32 QT: 343 QTc: 470 Interpretive Statements SINUS TACHYCARDIA RIGHT BUNDLE BRANCH BLOCK LEFT ANTERIOR FASCICULAR BLOCK BASELINE WANDER- V3 ABNORMAL ECG COMPARED TO ECG 12/27/2020 07:47:10 SINUS TACHYCARDIA NOW PRESENT Electronically Signed On 03-08-2022 20:32:18 FRAME ALIGNER by David Alfaro D.O.
[2022-03-08] MEDS: SODIUM CHLORIDE 0.9% IV 1,000 ML 999 ML IV CONT (19:33)
[2022-03-08] MEDS: ASPIRIN 81 MG CHEWABLE TABLET 324 MG PO (19:34)
[2022-03-08] MEDS: ONDANSETRON INJ 4 MG/2 ML VIAL IV PUSH (19:36)
--- NOTE | 2022-03-08 19:39 | PC.NURSE ---
Pt states he is currently in no chest pain after RN educates pt on PRN medication Nitro. RN educates pt to call light and encourages pt and his to hit the call light if pain returns to administer medication. Notified ERP.
[2022-03-08 19:52] LABS: Base Excess ABG -1.5 mmol/L (0-2); HCO3 ABG 21.5 mmol/L (23-29); Oxygen Content ABG 17.7 %vol (16.0-22.0); Oxygen Saturation ABG 95.7 % (95-97); Oxyhemoglobin 95.2 % (94-100); PCO2 ABG 31.1 mmHg (35-45); PO2 ABG 78.2 mmHg (80-90); Total Hemoglobin 13.2 g/dL (12.0-18.0); pH ABG 7.46 (7.35-7.45)
[2022-03-08 19:56] LABS: Basophils Absolute Auto 0.05 K/mm3 (0.00-0.10); Basophils Percent Auto 0.8 % (0.0-1.0); Eosinophils Absolute Auto 0.16 K/mm3 (0.02-0.50); Eosinophils Percent Auto 2.7 % (1.0-6.0); Hematocrit 39.1 % (40.0-54.0); Hemoglobin 12.8 g/dL (14.0-18.0); Immature Granulocyte Absolute 0.02 K/mm3 (0.00-0.00); Immature Granulocyte Percent A 0.3 % (0.0-0.0); Lymphocytes Absolute Auto 0.49 K/mm3 (1.10-4.50); Lymphocytes Percent Auto 8.2 % (18.0-42.0); Mean Corpuscular HGB Conc 32.7 g/dL (32.0-36.0); Mean Corpuscular Hemoglobin 30.7 pg (27.0-31.0); Mean Corpuscular Volume 93.8 fL (78.0-102.0); Mean Platelet Volume 9.6 fl (8.7-11.0); Monocytes Absolute Auto 0.89 K/mm3 (0.10-0.90); Monocytes Percent Auto 14.9 % (2.0-11.0); Neutrophils Absolute Auto 4.4 K/mm3 (1.7-7.2); Neutrophils Percent Auto 73.1 % (50.0-70.0); Platelet Count Result 181 K/mm3 (150-420); Red Blood Count 4.17 M/mm3 (4.70-6.10); Red Cell Distribution Width 12.8 % (11.6-14.4)
[2022-03-08 20:02] LABS: Device ROOM AIR; Modified Allen's Test Pass; Site Drawn RIGHT RADIAL
[2022-03-08 20:16] VITALS: BP 137/82; PULSE 105; O2SAT 97
[2022-03-08 20:17] LABS: Lactic Acid Reflex 1.9 mmol/L (0.4-2.0)
[2022-03-08 20:18] LABS: Alanine Aminotransferase 51 U/L (16-63); Albumin Level 3.7 g/dL (3.4-5.0); Alkaline Phosphatase 63 U/L (46-116); Anion Gap 10 mmol/L (8-16); Aspartate Amino Transferase 28 U/L (15-37); Bilirubin,Total 0.2 mg/dL (0.00-1.00); Blood Urea Nitrogen 24 mg/dL (7-18); Calcium 8.6 mg/dL (8.5-10.1); Carbon Dioxide 27 mmol/L (21-32); Chloride 106 mmol/L (98-108); Estimated CRCL calculation 45 ml/min; Estimated Glomerular Filt Rate 46; Glucose 117 mg/dL (70-99); NT Pro B Type Natriuretic Pept 51 pg/mL (0-125); Osmolality Calculated 301 mOsm/kg (285-295); Potassium 4.3 mmol/L (3.5-5.1); Sodium 143 mmol/L (136-145); Total Protein 6.7 g/dL (6.4-8.2); Troponin I 4.2 ng/L (0.00-60.4)
[2022-03-08 20:24] LABS: Strep Group A RT-PCR Negative (Negative)
[2022-03-08 20:31] VITALS: BP 140/81; PULSE 106; O2SAT 98
[2022-03-08 20:34] LABS: Influenza A QL RT-PCR Negative (Negative); Influenza B QL RT-PCR Negative (Negative); SARS-CoV-2 RNA PCR Positive (Negative)
[2022-03-08 20:40] LABS: Appearance Urine Clear (Clear); Bilirubin Urine Negative (Negative); Blood Urine Negative (Negative); Glucose Urine UA Negative (Negative); Ketones Urine Negative (Negative); Leukocyte Esterase Ur Negative LEU/UL (Negative); Nitrate Urine Negative (Negative); Protein Urine Negative (Negative); Specific Grav Ur 1.015 (1.010-1.020); Urobilinogen Urine 0.2 mg/dL (0.2-1.0); pH Urine 7.5 (5.0-8.0)
[2022-03-08 20:42] LABS: Add Urine Microscopic? NO; Color Urine Light Yellow (Yellow)
[2022-03-08 20:47] LABS: Amphetamine Screen Urine Negative (Negative); Barbiturate Screen Urine Negative (Negative); Benzodiazepines Screen Urine Negative (Negative); Cannabinoid Screen Urine Negative (Negative); Cocaine Screen Urine Negative (Negative); Methadone Screen Urine Negative (Negative); Opiate Screen Urine Negative (Negative); Phencyclidine Screen Urine Negative (Negative)
[2022-03-08 21:01] VITALS: BP 144/82; PULSE 104; RESP 19
[2022-03-08 21:16] VITALS: BP 143/85; PULSE 105; RESP 20; TEMP 37.7; O2SAT 97
--- NOTE | 2022-03-08 21:29 | ED.CHESTPAIN ---
HPI - Chest Pain General Chief Complaint: Chest Pain Stated Complaint: chest pain Time Seen by Provider: 03/08/22 18:51 Source: patient and RN notes reviewed Mode of arrival: ambulatory Limitations: no limitations History of Present Illness complaint: chest pain Onset (ago): day(s) (2) Timing of current episode: constant Prior episodes: Yes Onset: during exertion Pain location: lateral Pain radiation: none Severity: moderate Pain scale (0-10): 6 Quality: dull Relieving factors: nothing Exacerbating factors: exertion Associated symptoms: dyspnea and cough Related Data Home Medications Medication Instructions Recorded Confirmed meloxicam 15 mg tablet (Mobic) 15 mg PO DAILY 09/21/19 12/27/20 pantoprazole 40 mg tablet,delayed 40 mg PO QAM 09/21/19 12/27/20 release (Protonix) tamsulosin 0.4 mg capsule 0.4 mg PO DAILY 12/27/20 12/27/20 Allergies Allergy/AdvReac Type Severity Reaction Status Date / Time No Known Allergies Allergy Verified 05/13/21 16:12 Review of Systems Review of Systems: All systems reviewed & are unremarkable except as noted in HPI and below Constitutional: Constitutional: Reports no additional constitutional complaints Eyes: Eyes: Reports no additional eye complaints ENT: Reports system reviewed and no additional complaints, except as documented Cardiovascular: Cardiovascular: Reports no additional cardiovascular complaints Respiratory: Respiratory: Reports no additional respiratory complaints Gastrointestinal: Gastrointestinal: Reports no additional gastrointestinal complaints Musculoskeletal: Musculoskeletal: Reports no additional musculoskeletal complaints Integumentary/Breasts: Skin/Breast: Reports system reviewed and no additional complaints, except as docu Neurologic: Reports system reviewed and no additional complaints, except as documented Psychiatric: Psychiatric: Reports no additional psychiatric complaints Endocrine: Endocrine: Reports no additional endocrine complaints Hematologic/Lymphatic: Hematologic/Lymphatic: Reports no additional hematologic/lymphatic complaints Allergic/Immunologic: Allergic/Immunologic: Reports no additional allergic/immunologic complaints PMFSH Past Medical History Medical History Back pain Bronchitis COVID-19 GERD (gastroesophageal reflux disease) Pleurisy Renal and ureteric calculus Surgical History Surgical History History of surgery on arm laceration of forearm and flexor tendon Social History Social History Smoking status: Current every day smoker Smoking end date: 04/11/11 Alcohol intake: never Substance use: never Gender identity (if verbalized by the patient): Male Exam Const: General: no acute distress and well nourished Nutritional Appearance: well nourished Orientation/consciousness: patient oriented x3 Limitations: no limitations HENMT: Head: normal to inspection Ears: external ears normal, TM's normal bilaterally and EAC's normal Face/Nose/Sinus: Normal external nose present, Normal nares present, normal facial exam and sinuses nontender Face and sinus: normal facial exam and sinuses nontender Mouth: Yes Normal oral and palatal mucosa present and Yes moist mucous membranes Teeth and gingiva: dentition normal Throat: posterior oropharynx normal Eyes: Conjunctivae: conjunctivae normal Pupils: Equal, round and reactive pupils present EOM: EOMs intact bilaterally Neck: Neck: normal visual inspection, no lymphadenopathy and no meningeal signs Chest: Chest palpation & inspection: normal inspection of the chest Resp: Effort & Inspection: normal respiratory effort Auscultation: rhonchi and wheezes Cardio: Rate: regular rate Rhythm: regular rhythm GI: GI Palp: Yes Soft to palpation and No Tenderness to palpation present (GI) A
== END 2022-03-08 21:55 | disposition home or self-care (01) ==
PROVIDERS: Emergency Provider Emergency Medicine
DX: U07.1 COVID-19 (principal); J40 Bronchitis, not specified as acute or chronic; R09.1 Pleurisy; R06.00 Dyspnea, unspecified; F17.200 Nicotine dependence, unspecified, uncomplicated; K21.9 Gastro-esophageal reflux disease without esophagitis
CPT/HCPCS: 36415; 36600; 71250; 80053; 80307; 81003; 82805; 83605; 83880; 84484; 85025; 87040; 87502; 87651; 93005; 96361; 96374; 99284; A9270; J2405; J7030; U0003; U0005

== ENCOUNTER 2022-04-29 10:57 | Emergency (ER) | payer OTHER, SELFPAY ==
--- NOTE | ~2022-04-29 | CT_ITS ---
EXAMINATION: CT orbit BI wo con DATE: 04/29/2022 11:45 INDICATION: wood fragment in the left inner canthus TECHNIQUE: Computed tomography (CT) of the orbits was performed without intravenous contrast. Sagitta l and coronal reconstructed images were obtained. Automated exposure control and iterative reconstruc tion technique were employed. The dose-length product was 169.74 mGy-cm. COMPARISON: None FINDINGS: Orbits appear normal with no inflammatory stranding in the fat of either orbit. No radiopaque foreign bodies identified although sensitivity for a wood splinter particularly if small would be low CT giv en the similar density of wood or other organic matter to the nonfatty soft tissues. No soft tissue g as. Bones are unremarkable with no maxillofacial fractures. Mild mucosal thickening the bilateral eth moid and maxillary sinuses. Visualized portion of the brain is unremarkable. IMPRESSION: 1. No evident soft tissue gas, inflammatory stranding or evident foreign body at the left orbit. Of n ote, sensitivity for a wood splinter particularly if small would be low given the similar density of wood or other organic matter to the nonfatty soft tissues Reviewed, dictated and finalized at location A. RVISOR FORCE ADJUSTMENT IMPRESSION: 1. No evident soft tissue gas, inflammatory stranding or evident foreign body a t the left orbit. Of note, sensitivity for a wood splinter particularly if smal l would be low given the similar density of wood or other organic matter to the nonfatty soft tissues
[2022-04-29 10:57] VITALS: BP 172/86; PULSE 91; RESP 18; TEMP 36.4; O2SAT 100
[2022-04-29] MEDS: TETRACAINE HCL 0.5% OPHTH SOLN 4 ML BTL 1 DROP EACH EYE (11:13)
[2022-04-29] MEDS: DACRIOSE EYE IRRIGATION 118 ML BOTTLE 10 ML LEFT EYE (11:13)
[2022-04-29] MEDS: FLUORESCEIN SOD 1 MG/STRIP EACH EYE (11:13)
--- NOTE | 2022-04-29 11:57 | ED.EYEPROB ---
HPI - Eye Problem General Chief complaint: Eye Problems Stated complaint: stick in the eye Time Seen by Provider: 04/29/22 11:05 Source: patient Mode of arrival: ambulatory Limitations: no limitations History of Present Illness HPI Narrative: This is a 67-year-old gentleman that was doing yd work and had a tree branch imbedded in the inner epicanthal fold of his left eye foreign object can be visualized, there is some irritation and watering from the left eye, pain is minimal, there is no visual changes no bleeding from the eye patient is up-to-date with his tetanus has good range of motion of his ocular muscles. chief complaint: eye pain, eye redness, eye injury and foreign body Onset description: sudden Duration: constant Location: left eye Eye Symptoms: redness, pain and foreign body sensation Place: home Mechanism: direct trauma Severity: mild Related Data Home Medications Medication Instructions Recorded Confirmed meloxicam 15 mg tablet (Mobic) 15 mg PO DAILY 09/21/19 04/29/22 pantoprazole 40 mg tablet,delayed 40 mg PO QAM 09/21/19 04/29/22 release (Protonix) Allergies Allergy/AdvReac Type Severity Reaction Status Date / Time No Known Allergies Allergy Verified 04/29/22 11:05 Review of Systems Review of Systems: All systems reviewed & are unremarkable except as noted in HPI and below PMFSH Past Medical History Medical History Back pain Bronchitis COVID-19 GERD (gastroesophageal reflux disease) Pleurisy Renal and ureteric calculus Surgical History Surgical History History of surgery on arm laceration of forearm and flexor tendon Social History Social History Smoking status: Current every day smoker Smoking end date: 04/11/11 Alcohol intake: never Substance use: never Gender identity (if verbalized by the patient): Male Exam Const: General: healthy appearing Nutritional Appearance: well nourished Orientation/consciousness: patient oriented x3 Limitations: no limitations HENMT: Head: normal to inspection Face/Nose/Sinus: Normal external nose present Face and sinus: normal facial exam Mouth: Yes Normal oral and palatal mucosa present Eyes: Conjunctivae: conjunctivae normal Pupils: Equal, round and reactive pupils present EOM: EOMs intact bilaterally Direct Ophthalmoscopy: photophobia Other: Foreign object visualized in the inner I have the left inner epicanthal fold. Neck: Neck: normal visual inspection, no lymphadenopathy and no meningeal signs Chest: Chest palpation & inspection: normal inspection of the chest Resp: Effort & Inspection: normal respiratory effort Auscultation: clear to auscultation bilaterally Cardio: Rate: regular rate Rhythm: regular rhythm GI: Auscultation: normal bowel sounds : General: Yes bladder normal to palpation Urinary Catheter: Urinary Catheter: patent and draining Skin: General skin exam: normal color Rashes: no rashes Wounds: wounds noted Neuro: General: patient oriented x3 and moves all extremities Extrem: General: normal to inspection and no clubbing, cyanosis or edema Psych: Mental Status: mental status grossly normal Course Course Emergency Course: Fluorescein scan stains used and did not visualize a corneal abrasion, a piece of wood was retrieved from the inner epicanthal fold of his left eye with forceps, patient is up-to-date his tetanus and CT scan of the orbits was performed with no acute findings. Vital Signs Vital signs: Vital Signs Temperature 36.4 C 04/29/22 10:57 Pulse Rate 91 04/29/22 10:57 Respiratory Rate 18 04/29/22 10:57 Blood Pressure 172/86 H 04/29/22 10:57 Pulse Oximetry 100 04/29/22 10:57 Oxygen Delivery Room Air 04/29/22 10:57 Temperature 36.4 C 04/29/22 10:57 Pulse Rate 91 04/29/22 10:57
[2022-04-29 12:36] VITALS: BP 135/80; PULSE 64; RESP 16; TEMP 36.6; O2SAT 99
[2022-04-29] MEDS: NEOMYCIN/POLYMYXIN/HYDROCORT 7.5 ML EYE DROPS (*BKC) 1 DROP LEFT EYE (12:46)
== END 2022-04-29 12:52 | disposition home or self-care (01) ==
PROVIDERS: Emergency Provider Emergency Medicine; PCP Internal Medicine
DX: T15.82XA Foreign body in other and multiple parts of external eye, left eye, initial encounter (principal); X58.XXXA Exposure to other specified factors, initial encounter
CPT/HCPCS: 70480; 99284; A9270

== ENCOUNTER 2022-08-14 07:25 | Outpatient (CLI) | payer OTHER, MEDICARE, SELFPAY ==
--- NOTE | ~2022-08-14 | XR_ITS ---
EXAMINATION: XR lumbar spine 2-3V DATE: 08/14/2022 07:52 INDICATION: Chronic low back pain. TECHNIQUE: 3 views of lumbar spine were obtained. COMPARISON: Lumbar spine radiographs 10/16/2014, CT abdomen and pelvis 12/27/2020 FINDINGS: There are chronic bilateral L5 pars defects. There is 5 mm anterolisthesis of L5 on S1. Sagrario tebral body heights are normal. There is severely decreased disc height at L5-S1. There is multilevel mild facet joint osteoarthritis. IMPRESSION: 1. Chronic bilateral L5 pars defects with grade 1 anterolisthesis of L5 on S1. 2. Severe lower lumbar spondylosis. Reviewed, dictated and finalized at location A.
--- NOTE | ~2022-08-14 | XR_ITS ---
EXAMINATION: XR hip LT min 2V DATE: 08/14/2022 07:51 INDICATION: Left hip injury and pain. TECHNIQUE: 2 views of left hip were obtained. COMPARISON: None. FINDINGS: Bone alignment is normal. No fracture. There is mild left hip osteoarthritis. IMPRESSION: 1. Mild left hip osteoarthritis. Reviewed, dictated and finalized at location A.
[2022-08-14 07:43] LABS: Basophils Absolute Auto 0.02 K/mm3 (0.00-0.10); Basophils Percent Auto 0.1 % (0.0-1.0); Hematocrit 42.6 % (37.0-46.0); Hemoglobin 14.4 g/dL (12.4-15.3); Immature Granulocyte Absolute 0.11 K/mm3 (0.00-0.00); Immature Granulocyte Percent A 0.6 % (0.0-0.0); Lymphocytes Absolute Auto 1.11 K/mm3 (1.10-4.50); Lymphocytes Percent Auto 5.9 % (18.0-42.0); Mean Corpuscular HGB Conc 33.8 g/dL (32.0-36.0); Mean Corpuscular Hemoglobin 31.2 pg (27.0-31.0); Mean Corpuscular Volume 92.4 fL (78.0-102.0); Mean Platelet Volume 9.8 fl (8.7-11.0); Monocytes Absolute Auto 0.79 K/mm3 (0.10-0.90); Monocytes Percent Auto 4.2 % (2.0-11.0); Neutrophils Absolute Auto 16.9 K/mm3 (1.7-7.2); Neutrophils Percent Auto 89.2 % (50.0-70.0); Platelet Count Result 251 K/mm3 (150-420); Red Blood Count 4.61 M/mm3 (4.70-6.10); Red Cell Distribution Width 12.4 % (11.6-14.4); White Blood Count 18.9 K/mm3 (4.8-10.8)
[2022-08-14 08:26] LABS: Alanine Aminotransferase 50 U/L (16-63); Alkaline Phosphatase 72 U/L (46-116); Anion Gap 12 mmol/L (8-16); Aspartate Amino Transferase 27 U/L (15-37); Bilirubin,Total 0.3 mg/dL (0.00-1.00); Blood Urea Nitrogen 27 mg/dL (7-18); Calcium 9.2 mg/dL (8.5-10.1); Carbon Dioxide 22 mmol/L (21-32); Chloride 107 mmol/L (98-108); Estimated Glomerular Filt Rate 50; Glucose 133 mg/dL (70-99); Osmolality Calculated 299 mOsm/kg (285-295); Potassium 4.6 mmol/L (3.5-5.1); Prostate Specific Antigen 0.5 ng/mL (< OR = 4.0); Sodium 141 mmol/L (136-145); Total Protein 7.3 g/dL (6.4-8.2)
[2022-08-17 12:25] LABS: Hemoglobin A1C 5.8 % (<5.7)
== END 2022-08-14 07:26 | disposition home or self-care (01) ==
LOC: CHSIMG 07:29
PROVIDERS: PCP Internal Medicine; Visit Provider Internal Medicine
DX: Z00.00 Encounter for general adult medical examination without abnormal findings (principal); N18.2 Chronic kidney disease, stage 2 (mild); M54.50 Low back pain, unspecified; M43.06 Spondylolysis, lumbar region; M16.12 Unilateral primary osteoarthritis, left hip; R73.01 Impaired fasting glucose; Z12.5 Encounter for screening for malignant neoplasm of prostate
CPT/HCPCS: 36415; 72100; 73502; 80053; 83036; 84153; 85025; G0103

== ENCOUNTER 2023-03-01 10:54 | Outpatient (CLI) | payer OTHER, MEDICARE, SELFPAY ==
[2023-03-01 11:09] LABS: Basophils Absolute Auto 0.06 K/mm3 (0.00-0.10); Eosinophils Percent Auto 3.4 % (1.0-6.0); Hematocrit 42.4 % (37.0-46.0); Hemoglobin 13.9 g/dL (12.4-15.3); Immature Granulocyte Absolute 0.02 K/mm3 (0.00-0.00); Immature Granulocyte Percent A 0.3 % (0.0-0.0); Lymphocytes Absolute Auto 1.27 K/mm3 (1.10-4.50); Lymphocytes Percent Auto 21.3 % (18.0-42.0); Mean Corpuscular HGB Conc 32.8 g/dL (32.0-36.0); Mean Corpuscular Hemoglobin 30.4 pg (27.0-31.0); Mean Corpuscular Volume 92.8 fL (78.0-102.0); Mean Platelet Volume 9.3 fl (8.7-11.0); Monocytes Percent Auto 8.4 % (2.0-11.0); Neutrophils Absolute Auto 3.9 K/mm3 (1.7-7.2); Neutrophils Percent Auto 65.6 % (50.0-70.0); Platelet Count Result 220 K/mm3 (150-420); Red Blood Count 4.57 M/mm3 (4.70-6.10); Red Cell Distribution Width 12.5 % (11.6-14.4)
[2023-03-01 11:10] LABS: Appearance Urine Clear (Clear); Bilirubin Urine Negative (Negative); Blood Urine Negative (Negative); Color Urine Light Yellow (Yellow); Glucose Urine UA Negative (Negative); Ketones Urine Negative (Negative); Leukocyte Esterase Ur Negative (Negative); Nitrate Urine Negative (Negative); Protein Urine Negative (Negative); Specific Grav Ur 1.025 (1.010-1.020); Urobilinogen Urine 0.2 mg/dL (0.2-1.0)
[2023-03-01 11:23] LABS: Hemoglobin A1C 6.1 % (<5.7)
[2023-03-01 11:27] LABS: Add Urine Microscopic? NO
[2023-03-01 12:00] LABS: Alanine Aminotransferase 47 U/L (16-63); Alkaline Phosphatase 69 U/L (46-116); Anion Gap 5 mmol/L (8-16); Bilirubin,Total 0.3 mg/dL (0.00-1.00); Calcium 8.8 mg/dL (8.5-10.1); Chloride 105 mmol/L (98-108); Estimated Glomerular Filt Rate 44; Potassium 4.9 mmol/L (3.5-5.1)
[2023-03-01 13:34] LABS: Albumin Level 3.7 g/dL (3.4-5.0); Aspartate Amino Transferase 24 U/L (15-37); Blood Urea Nitrogen 27 mg/dL (7-18); Carbon Dioxide 29 mmol/L (21-32); Glucose 93 mg/dL (70-99); Osmolality Calculated 297 mOsm/kg (285-295); Prostate Specific Antigen 0.8 ng/mL (< OR = 4.0); Sodium 141 mmol/L (136-145); Total Protein 6.9 g/dL (6.4-8.2)
== END 2023-03-01 10:55 | disposition home or self-care (01) ==
LOC: CHSLAB 10:56
PROVIDERS: PCP Internal Medicine; Visit Provider Internal Medicine
DX: M54.50 Low back pain, unspecified (principal); N18.30 Chronic kidney disease, stage 3 unspecified; R73.03 Prediabetes
CPT/HCPCS: 36415; 80053; 81003; 83036; 84153; 85025; G0103

== ENCOUNTER 2023-08-05 07:20 | Outpatient (CLI) | payer OTHER, MEDICARE, SELFPAY ==
[2023-08-05 07:45] LABS: Hematocrit 44.8 % (37.0-46.0); Hemoglobin 14.5 g/dL (12.4-15.3); Mean Corpuscular HGB Conc 32.4 g/dL (32-36); Mean Corpuscular Hemoglobin 29.7 pg (27.0-31.0); Mean Corpuscular Volume 91.8 fL (78.0-102.0); Mean Platelet Volume 9.4 fl (8.7-11.0); Platelet Count Result 239 K/mm3 (150-420); Red Blood Count 4.88 M/mm3 (4.70-6.10); Red Cell Distribution Width 12.3 % (11.6-14.4); White Blood Count 6.5 K/mm3 (4.8-10.8)
[2023-08-05 08:10] LABS: Hemoglobin A1C 5.7 % (<5.7)
[2023-08-05 08:40] LABS: Alanine Aminotransferase 42 U/L (16-63); Albumin Level 4.2 g/dL (3.4-5.0); Alkaline Phosphatase 71 U/L (46-116); Anion Gap 9 mmol/L (4-12); Aspartate Amino Transferase 23 U/L (15-37); Bilirubin,Total 0.5 mg/dL (0.00-1.00); Blood Urea Nitrogen 25 mg/dL (7-18); Calcium 9.2 mg/dL (8.5-10.1); Carbon Dioxide 28 mmol/L (21-32); Chloride 106 mmol/L (98-108); Cholesterol 201 mg/dL (0-200); Estimated Glomerular Filt Rate 52; Glucose 98 mg/dL (70-99); HDL Direct 41 mg/dL (40-60); LDL Cholesterol Calculated 129 mg/dL (<130); Osmolality Calculated 300 mOsm/kg (285-295); Potassium 4.6 mmol/L (3.5-5.1); Sodium 143 mmol/L (136-145); Thyroid Stimulating Hormone 2.35 uIU/mL (0.36-3.74); Total Protein 7.1 g/dL (6.4-8.2); Triglycerides 157 mg/dL (0-150)
== END 2023-08-05 07:21 | disposition home or self-care (01) ==
LOC: CHSLAB 07:24
PROVIDERS: PCP Internal Medicine; Visit Provider Internal Medicine
DX: N18.30 Chronic kidney disease, stage 3 unspecified (principal); R73.03 Prediabetes
CPT/HCPCS: 36415; 80053; 80061; 83036; 84443; 85027

== ENCOUNTER 2023-08-31 13:34 | Outpatient (CLI) | payer OTHER, MEDICARE, SELFPAY ==
--- NOTE | ~2023-08-31 | MR_ITS ---
MRI of the lumbar spine Clinical History: Back pain Technique: Axial T2-weighted images, and sagittal T1-weighted, T2-weighted, and and T2 fat-sat images were acquired. COMPARISON: 07/13/2017 Findings: There are bilateral L5 pars interarticularis defects, with 7 mm anterolisthesis of L5 over S1. No acute fracture seen. No bone marrow signal abnormality seen. At L1-L2, L2-L3, and L3-L4, there is no disc bulge or herniation. There are moderate facet joint dege nerative changes at these levels. No spinal canal stenosis or neural foraminal narrowing at these lev els. At L4-L5, there is mild disc bulge and moderate facet arthropathy. No central canal stenosis. There i s mild to moderate bilateral neural foraminal narrowing. At L5-S1, there is advanced degenerative disc narrowing. There is mild diffuse disc bulge with advanc ed facet arthropathy. No central canal stenosis. There is severe bilateral neural foraminal narrowing . Paravertebral soft tissues are unremarkable. Impression: Bilateral L5 pars interarticularis defects, with 7 mm anterolisthesis of L5 over S1. Associated moderate to advanced degenerative spondylosis at L5-S1, with severe bilateral neural vivek inal narrowing at this level. Reviewed, dictated and finalized at location . Impression: Bilateral L5 pars interarticularis defects, with 7 mm anterolisthesis of L5 ove r S1. Associated moderate to advanced degenerative spondylosis at L5-S1, with severe bilateral neural foraminal narrowing at this level.
== END 2023-08-31 13:35 | disposition home or self-care (01) ==
PROVIDERS: PCP Internal Medicine; Visit Provider Internal Medicine
DX: M47.896 Other spondylosis, lumbar region (principal)
CPT/HCPCS: 72148

== ENCOUNTER 2024-08-08 07:12 | Outpatient (CLI) | payer MEDICARE, OTHER, SELFPAY ==
--- OUTSIDE RECORDS SUMMARY | 2024-08-08 07:18 | XMS_ITS | Clinical Summary ---
Author Organization [facility] Address [address] [place] [address] Care Team Providers Care Cold Rolling Coordinator Name Role Phone Brandt Chaparro MD Primary Care Provider Source Comments [facility],non-owned Affiliates and Associated Physician Practices is amultiple site organization consisting of ambulatory clinics and hospital sitesin [place], [place], [place] and [place]. This disclosure is being madepursuant to the Care Everywhere program and may not contain all information available regarding this patient. 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 Gender Identity Not on file Sexual Orientation Not on file Last Filed Vital Signs Vital Sign Reading Time Taken Comments Blood Pressure 126/71 10/13/2015 11:00 PM CDT Pulse 77 10/14/2015 12:41 AM CDT Temperature 36.8 C (98.3 F) 10/13/2015 9:19 PM CDT Respiratory Rate 16 10/13/2015 9:19 PM CDT Oxygen Saturation 94% 10/14/2015 12:41 AM CDT Inhaled Oxygen Concentration - - Weight 72.6 kg (160 lb) 10/13/2015 9:12 PM CDT Height 177.8 cm (5' 10 ) 10/13/2015 9:12 PM CDT Body Mass Index 22.96 10/13/2015 9:12 PM CDT Plan of Treatment Health Maintenance Due Date Last Done Comments COLOGUARD (AGES 45-75) - COL ON CA SCREENING 1957 COLON MONITORING 1957 COLONOSCOPY - COLON CA SCREENING 1957 CT COLONOGRAPHY - COLON CA SCREENING 1957 Colorectal Cancer Screening 1957 FIT - COLON CA SCREENING 1957 FLEX SIG - COLON CA SCREENING 1957 LIPID TESTING 1957 HEPATITIS C SCREENING 04/21/1975 DTAP/TDAP/TD VACCINES (1 - Tdap) 1976 PNEUMOCOCCAL VACCINE 50+ (1 of 1 - PCV) 2007 ZOSTER VACCINE (1 of 2) 2007 COVID-19 VACCINE (1 - 2023-2 5 season) 2023 DEPRESSION SCREENING 04/11/2024 INFLUENZA VACCINE (Season Ended) 2024 Respiratory Syncytial Virus (RSV) Vaccine Pt: or over 60 yrs (1 - 1-dose 75+ series) 2032 HEPATITIS B VACCINE Aged Out No longe r eligible based on patient's age to complete this topic HIB VACCINE Aged Out No longer eligi ble based on patient's age to complete this topic HPV VACCINE Aged Out No longer eligi ble based on patient's age to complete this topic MENINGOCOCCAL (Group B) VACC INE SHARED DECISION-MAKING Aged Out No longer eligibl e based on patient's age to complete this topic MENINGOCOCCAL GROUPS A/C/Y/W VACCINE Aged Out No longer eligible b ased on patient's age to complete this topic Insurance [place] [address] Care Teams Cold Rolling Coordinator Relationship Specialty Start Date End Date Brandt Chaparro MD [address] [place] [address] [place] [address] PCP - General 01/07/21
--- OUTSIDE RECORDS SUMMARY | 2024-08-08 07:18 | XMS_ITS | Clinical Summary ---
Author Organization [facility] Address [address] [place] [address] Phone Care Team Providers Care Fine Craft Artist Name Role Phone Unavailable Primary Care Provider Unavailabl e Medications meloxicam (MOBIC) 15 mg tablet Take 15 mg by mouth daily. Active acetaminophen (TYLENOL) 500 mg tablet Take 500 mg by mouth every 6 hours as needed. Active traMADoL (ULTRAM) 50 mg tablet Take 50 mg by mouth every 6 hours as needed for Pain. Active pantoprazole (PROTONIX) 40 mg Tablet, Delayed Release (E.C.) Take 40 mg by mouth daily. Active Active Problems No known active problems Social History Tobacco Use Types Packs/Day Years Used Date Smoking Tobacco: Never Passive Smoke Exposure: Never Smokeless Tobacco: Never Tobacco Cessation:Counseling Given: Not Answered Sex and Gender Information Value Date Recorded Sex Assigned at Not on file Legal Sex Male 1:28 PM CDT Gender Identity Not on file Sexual Orientation Not on file Last Filed Vital Signs Vital Sign Reading Time Taken Comments Blood Pressure 154/90 11/23/2023 1:12 PM CDT Pulse 94 11/23/2023 1:12 PM CDT Temperature 36.8 C (98.2 F) 11/23/2023 1:12 PM CDT Respiratory Rate - - Oxygen Saturation - - Inhaled Oxygen Concentration - - Weight 85 kg (187 lb 6.4 oz) 11/23/2023 1:12 PM CDT Height 177.8 cm (5' 10 ) 11/23/2023 1:12 PM CDT Body Mass Index 26.89 11/23/2023 1:12 PM CDT Plan of Treatment Health Maintenance Due Date Last Done Comments Pre-Diabetes and Diabetes Screening 1957 DTAP/TDAP/TD VACCINES (1 - Tdap) 1976 COLORECTAL SCREENING 2002 Colorectal Cancer Screening 2002 FIT-DNA Q 3 years 2002 FIT/FOBT Q 1 year 2002 Flex Sig/CT Colonography Q 5 years 2002 PNEUMOCOCCAL VACCINE 50+ YEARS (1 of 1 - PCV) 04/25/19 08 ZOSTER VACCINE (1 of 2) 2007 INFLUENZA VACCINE (#1) 2023 RSV VACCINE (60+ or ) (1 - 1-dose 75+ series) 2032 Insurance [facility] [id number] [place] [address] MEDICARE PART A AND B
--- OUTSIDE RECORDS SUMMARY | 2024-08-08 07:18 | XMS_ITS | Clinical Summary ---
Author Organization [facility] Address [address] [place] [address] Care Team Providers Care Title Inspector Name Role Phone Brandt Chaparro MD Primary Care Provider [phone] Allergies No known active allergies Medications meloxicam 15 MG tablet Take 15 mg by mouth daily. Active pantoprazole 40 MG tablet Take 40 mg by mouth daily. Active Social History Tobacco Use Types Packs/Day Years Used Date Smoking Tobacco: Never Smokeless Tobacco: Never Alcohol Use Standard Drinks/Week Comments No 0 (1 standard drink = 0.6 oz pur e alcohol) Sex and Gender Information Value Date Recorded Sex Assigned at Not on file Legal Sex Male 5:20 PM CDT Gender Identity Not on file Sexual Orientation Not on file Last Filed Vital Signs Vital Sign Reading Time Taken Comments Blood Pressure 152/82 11/22/2017 5:23 PM CDT Pulse 107 11/22/2017 5:23 PM CDT Temperature 36.6 C (97.9 F) 11/22/2017 5:23 PM CDT Respiratory Rate 18 11/22/2017 5:23 PM CDT Oxygen Saturation 98% 11/22/2017 9:00 PM CDT Inhaled Oxygen Concentration - - Weight 77 kg (169 lb 12.1 oz) 11/22/2017 5:23 PM CDT Height 177.8 cm (5' 10 ) 11/22/2017 5:23 PM CDT Body Mass Index 24.36 11/22/2017 5:23 PM CDT Plan of Treatment Health Maintenance Due Date Last Done Comments Colorectal Cancer Screening Colonoscopy (10 Years) 1957 Hepatitis C 1975 DTaP, Tdap and Td Vaccines ( 1 - Tdap) 1976 Pneumococcal Vaccine: 50+ Ye ars (1 of 1 - PCV) 2007 Zoster Vaccines (1 of 2) 2007 COVID-19 Vaccine (1 - 2023-2 5 season) 2023 RSV Immunization or 60+ Years (1 - 1-dose 75+ series) 2032 Meningococcal B Vaccine Aged Out No l onger eligible based on patient's age to complete this topic Meningococcal Vaccine Aged Out No matti aida eligible based on patient's age to complete this topic RSV Immunizations Under 20 Months Aged Out No longer eligible based on patient's age to complete this topic Insurance [employer] Care Teams Title Inspector Relationship Specialty Start Date End Date Brandt Chaparro MD [facility] [place] [id number] PCP - General FAMILY PRACTICE 11/22/17
[2024-08-08 08:04] LABS: Basophils Absolute Auto 0.04 K/mm3 (0.00-0.10); Basophils Percent Auto 0.7 % (0.0-1.0); Eosinophils Absolute Auto 0.36 K/mm3 (0.02-0.50); Hematocrit 44.1 % (37.0-46.0); Hemoglobin 14.3 g/dL (12.4-15.3); Immature Granulocyte Absolute 0.05 K/mm3 (0.00-0.00); Immature Granulocyte Percent A 0.8 % (0.0-0.0); Lymphocytes Absolute Auto 1.43 K/mm3 (1.10-4.50); Lymphocytes Percent Auto 23.8 % (18.0-42.0); Mean Corpuscular HGB Conc 32.4 g/dL (32-36); Mean Corpuscular Hemoglobin 29.9 pg (27.0-31.0); Mean Corpuscular Volume 92.3 fL (78.0-102.0); Mean Platelet Volume 9.6 fl (8.7-11.0); Monocytes Absolute Auto 0.61 K/mm3 (0.10-0.90); Monocytes Percent Auto 10.1 % (2.0-11.0); Neutrophils Absolute Auto 3.53 K/mm3 (1.70-7.20); Neutrophils Percent Auto 58.6 % (50.0-70.0); Platelet Count Result 244 K/mm3 (150-420); Red Blood Count 4.78 M/mm3 (4.70-6.10); Red Cell Distribution Width 12.5 % (11.6-14.4)
[2024-08-08 10:14] LABS: Alanine Aminotransferase 49 U/L (16-63); Albumin Level 3.9 g/dL (3.4-5.0); Alkaline Phosphatase 80 U/L (46-116); Anion Gap 11 mmol/L (4-12); Aspartate Amino Transferase 20 U/L (15-37); Bilirubin,Total 0.4 mg/dL (0.00-1.00); Blood Urea Nitrogen 23 mg/dL (7-18); CRP 0.5 mg/dL (0.0-0.9); Carbon Dioxide 26 mmol/L (21-32); Chloride 106 mmol/L (98-108); Cholesterol 159 mg/dL (0-200); Estimated Glomerular Filt Rate 52; Glucose 98 mg/dL (70-99); HDL Direct 35 mg/dL (40-60); LDL Cholesterol Calculated 88 mg/dL (<130); Osmolality Calculated 299 mOsm/kg (285-295); Potassium 4.7 mmol/L (3.5-5.1); Prostate Specific Antigen 0.8 ng/mL (< OR = 4.0); Sodium 143 mmol/L (136-145); Triglycerides 179 mg/dL (0-150)
[2024-08-08 10:29] LABS: Add Urine Microscopic? NO; Appearance Urine Clear (Clear); Bilirubin Urine Negative (Negative); Blood Urine Negative (Negative); Color Urine Yellow (Yellow); Glucose Urine UA Negative (Negative); Ketones Urine Negative (Negative); Leukocyte Esterase Ur Negative (Negative); Nitrate Urine Negative (Negative); Protein Urine Negative (Negative); Urobilinogen Urine 0.2 mg/dL (0.2-1.0); pH Urine 6.5 (5.0-8.0)
== END 2024-08-08 07:13 | disposition home or self-care (01) ==
LOC: CHSLAB 07:16
PROVIDERS: PCP Internal Medicine; Visit Provider Internal Medicine
DX: N18.2 Chronic kidney disease, stage 2 (mild) (principal); Z12.5 Encounter for screening for malignant neoplasm of prostate; R73.01 Impaired fasting glucose; R53.83 Other fatigue
CPT/HCPCS: 36415; 80053; 80061; 81003; 84153; 84443; 85025; 86140; G0103